=== PATIENT | male | born 1980 | race Caucasian/White ===

== ENCOUNTER 2018-05-14 12:33 | Emergency (ER) | payer MEDICAID ==
[2018-05-14 12:46] VITALS: RESP 22
[2018-05-14] MEDS ORDERED: Albuterol-Ipratrop 3 mg / 0.5 (3 ml) UD ONE ×2 (12:52→13:44)
[2018-05-14] MEDS ORDERED: Albuterol-Ipratrop 3 mg / 0.5 (3 ml) UD INH STA (12:53)
--- NOTE | 2018-05-14 13:30 | C.PDOC ---
History Of Present Illness 38 year old male, with reported history of anxiety and asthma, presents to the ED for evaluation. Patient states he recently ran out of his albuterol puffer and has been experiencing anxiety that is worse during asthma flare-ups. Patient reported to be physically imposing during triage. Patient has a history of anxiety, but has not been locally treated and is not on any regular medications. Patient denies substance and alcohol abuse. Time Seen by Provider: 05/14/18 13:22 Chief Complaint (Nursing): Anxiety History Per: Patient History/Exam Limitations: no limitations Onset/Duration Of Symptoms: Days Current Symptoms Are (Timing): Still Present Suicide/Self Injury Attempted (Context): None Modifying Factor(s): None Additional History Per: Patient Past Medical History Reviewed: Historical Data, Nursing Documentation, Vital Signs Vital Signs: Last Vital Signs Temp 97.3 F L 05/14/18 12:43 Pulse 99 H 05/14/18 12:43 Resp 22 05/14/18 12:43 BP 130/87 05/14/18 12:43 Pulse Ox 100 05/14/18 12:43 - Medical History PMH: Anxiety, Asthma Surgical History: No Surg Hx Family History: States: Unknown Family Hx - Social History Hx Alcohol Use: Yes Hx Substance Use: No - Immunization History Hx Tetanus Toxoid Vaccination: No Hx Influenza Vaccination: No Hx Pneumococcal Vaccination: No Review Of Systems Psych: Positive for: Anxiety Physical Exam - Physical Exam Appears: Non-toxic, No Acute Distress, Other (large, muscular male ) Skin: Normal Color, Warm, Dry Head: Atraumatic, Normacephalic Eye(s): bilateral: Normal Inspection Oral Mucosa: Moist Neck: Supple Chest: Symmetrical, No Deformity, No Tenderness Cardiovascular: Rhythm Regular, No Murmur Respiratory: Normal Breath Sounds, No Rales, No Rhonchi, No Wheezing Extremity: Normal ROM, Capillary Refill (less than 2 seconds ) Neurological/Psych: Oriented x3, Normal Speech, Normal Cognition ED Course And Treatment O2 Sat by Pulse Oximetry: 100 (on RA) Pulse Ox Interpretation: Normal Progress Note: Albuterol INH and Xanax PO given. Medical Decision Making Medical Decision Making: ran out of albuterol puffer refill and add aerochamber spacer anxiety h/o same first visit here xanax- very anxious and physical in ED, but directable refer to [facility] for d/c no SI/HI Luxembourger, Montserratian speaking ddx: ADHD, substance issues (denies) Disposition Doctor Will See Patient In The: Office Counseled Patient/Family Regarding: Studies Performed, Diagnosis - Disposition Referrals: [facility] [Outside] [facility] [Outside] [facility] [place] [Outside] [facility] [Outside] [facility] [Outside] Disposition: HOME/ ROUTINE Disposition Time: 13:29 Condition: GOOD Additional Instructions: Asthma; usa elias bomba de Albuterol 2 puffs cada 3-4 horas manuel necessario Siempre usa con el Aerochamber Spacer (tubo plastico) para que se funccion'a mejor Sigue en la [facility] para hacer ashley Anxiedad Sigue en el [facility] ([facility] [place]) En frente del [facility] para hacer ashley o' present [facility] Ellos pueden ayudarse con elias anxiedad con medicamentos y consejeria. Prescriptions: Albuterol HFA [Ventolin HFA 90 mcg/actuation (8 g)] 200 puff IH Q4H PRN #2 puff PRN Reason: asthma Spacer, Inhalation [Aerochamber] 1 dev IH DAILY #1 dev Instructions: Asthma in Adults, Anxiety, Adult (DC) Forms: [employer] (Turkmen) Print Language: ICELANDIC - Clinical Impression Clinical Impression: Anxiety, Asthma - Scribe Statement The provider has reviewed the documentation as recorded by the Scribe (Sarahy Andrews) Provider Attestation: All medical record entries made by the Scribe were at my direction and personally dictated by me. I have reviewed the chart and agree that the record accurately reflects my personal performance of the history, physical exam, medical decision making, and the department course for this patient. I have also personally directed, reviewed, and agree with the discharge instructions and disposition.
[2018-05-14 15:00] VITALS: BP 127/84; PULSE 83; TEMP 98.7; O2SAT 99
== END 2018-05-14 14:58 | disposition home or self-care (01) ==
LOC: C.ER 12:33
DX: F41.9 Anxiety disorder, unspecified (principal); J45.909 Unspecified asthma, uncomplicated